=== PATIENT | male | born 2000 | race Asian ===

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

== ENCOUNTER 2021-12-29 19:35 | Emergency (ER) | payer MEDICAID ==
[~2021-12-29] VITALS: Ht 182.9 cm; Wt 68.0 kg
[2021-12-29] MEDS ORDERED: KETOROLAC TROMETH 60MG/2ML VIAL IM ONE (20:45)
[2021-12-29 22:28] VITALS: BP 116/68
== END 2021-12-29 22:30 | disposition home or self-care (01) ==
LOC: ER 19:35
DX: B34.9 Viral infection, unspecified (principal); R51.9 Headache, unspecified; R50.9 Fever, unspecified; F12.10 Cannabis abuse, uncomplicated; Z20.822 Contact with and (suspected) exposure to COVID-19
CPT/HCPCS: 36415; 87426; 96372; 99283; J1885

== ENCOUNTER 2023-12-20 07:36 | Emergency (ER) | payer MEDICAID ==
[~2023-12-20] VITALS: Ht 182.9 cm; Wt 80.6 kg
[2023-12-20 08:15] LABS: Basophils # (auto) 0.1 10 ^3/uL (0-0.2); Eosinophils # (auto) 0.2 10 ^3/uL (0-0.8); Eosinophils % (auto) 2.2 % (0.0-7.0); Hematocrit 44.6 % (41.0-53.0); Hemoglobin 15.4 g/dL (13.5-17.5); Lymphocytes # (auto) 2.7 10 ^3/uL (0.4-5.4); Lymphocytes % (auto) 25.8 % (10.0-50.0); Mean Corpuscular Hemoglobin 29.9 pg (28.0-32.0); Mean Corpuscular Hgb Conc. 34.4 g/dL (32.0-36.0); Mean Corpuscular Volume 86.8 fL (80.0-100.0); Monocytes # (auto) 0.9 10 ^3/uL (0-1.3); Monocytes % (auto) 8.3 % (0.0-12.0); Neutrophils # (auto) 6.6 10 ^3/uL (1.6-8.6); Neutrophils % (auto) 62.7 % (37.0-80.0); Nucleated Red Blood Cells % 0.1 %; Red Blood Cells 5.14 10^6/uL (4.5-5.90); Red Cell Distribution Width 12.7 % (11.8-14.3); White Blood Cell 10.6 10^3/uL (4.4-10.8)
[2023-12-20 08:23] LABS: Urine Bacteria NONE SEEN /hpf (None Seen); Urine Blood Negative /uL (Negative); Urine Clarity Clear (Clear); Urine Color Colorless (Yellow); Urine Protein, UAD Negative (Negative); Urine Specific Gravity 1.009 (1.001-1.035); Urine Urobilinogen Normal (Negative); Urine WBC <1 /hpf (0 - 3)
[2023-12-20 08:34] LABS: Chloride 105 mmol/L (98-107); Potassium 3.7 mmol/L (3.5-5.1); Sodium 138 mmol/L (136-145)
[2023-12-20 08:35] LABS: Anion Gap 4 (5-15); Calcium 9.5 mg/dL (8.5-10.1); Carbon Dioxide 29 mmol/L (20-30)
[2023-12-20 08:40] LABS: BUN/Creatinine Ratio 6.7 (10.0-20.0); Blood Urea Nitrogen 7 mg/dL (9-23); Glucose 93 mg/dL (74-106)
[2023-12-20 09:08] LABS: Albumin 4.4 g/dL (3.2-4.8); Bilirubin, Total 0.8 mg/dL (0.2-1.0); Total Protein 7.1 g/dL (5.7-8.2)
[2023-12-20 09:42] LABS: Bilirubin, Direct 0.2 mg/dL (<0.3)
[2023-12-20 09:55] VITALS: BP 112/70; PULSE 68; RESP 18; TEMP 98.4; O2SAT 96
== END 2023-12-20 09:57 | disposition home or self-care (01) ==
LOC: ER 07:36
DX: R10.84 Generalized abdominal pain (principal); F15.90 Other stimulant use, unspecified, uncomplicated
CPT/HCPCS: 36415; 76705; 80048; 80076; 81001; 83690; 85025

== ENCOUNTER 2024-01-14 10:09 | Emergency (ER) | payer MEDICAID ==
[~2024-01-14] VITALS: Ht 182.9 cm; Wt 79.5 kg
[2024-01-14 11:28] VITALS: BP 124/85; RESP 16; O2SAT 98
[2024-01-14 12:36] VITALS: TEMP 98.1
[2024-01-14] MEDS: IBUPROFEN 600 MG TAB PO ONE (12:36)
[2024-01-14 12:55] LABS: Basophils # (auto) 0.1 10 ^3/uL (0-0.2); Basophils % (auto) 1.2 % (0.0-2.0); Eosinophils # (auto) 0.3 10 ^3/uL (0-0.8); Eosinophils % (auto) 3.1 % (0.0-7.0); Hematocrit 49.8 % (41.0-53.0); Hemoglobin 16.9 g/dL (13.5-17.5); Lymphocytes # (auto) 3.1 10 ^3/uL (0.4-5.4); Lymphocytes % (auto) 38.1 % (10.0-50.0); Mean Corpuscular Hemoglobin 29.3 pg (28.0-32.0); Mean Corpuscular Hgb Conc. 33.9 g/dL (32.0-36.0); Mean Corpuscular Volume 86.2 fL (80.0-100.0); Monocytes # (auto) 0.4 10 ^3/uL (0-1.3); Monocytes % (auto) 5.2 % (0.0-12.0); Neutrophils # (auto) 4.3 10 ^3/uL (1.6-8.6); Neutrophils % (auto) 52.4 % (37.0-80.0); Nucleated Red Blood Cells % 0.2 %; Red Blood Cells 5.77 10^6/uL (4.5-5.90); White Blood Cell 8.2 10^3/uL (4.4-10.8)
[2024-01-14 13:08] LABS: Chloride 104 mmol/L (98-107); Potassium 4.5 mmol/L (3.5-5.1); Sodium 138 mmol/L (136-145)
[2024-01-14 13:09] LABS: Anion Gap 6 (5-15); Carbon Dioxide 28 mmol/L (20-30)
[2024-01-14 13:10] LABS: Calcium 9.7 mg/dL (8.5-10.1)
[2024-01-14 13:14] LABS: BUN/Creatinine Ratio 14.3 (10.0-20.0); Blood Urea Nitrogen 15 mg/dL (9-23); Glucose 90 mg/dL (74-106)
[2024-01-14 13:32] VITALS: PULSE 67
[2024-01-14] MEDS ORDERED: NABU-72 PO (14:06)
== END 2024-01-14 14:11 | disposition home or self-care (01) ==
LOC: ER 10:09
DX: M79.622 Pain in left upper arm (principal); R07.89 Other chest pain; F15.90 Other stimulant use, unspecified, uncomplicated; Z79.899 Other long term (current) drug therapy
CPT/HCPCS: 36415; 71045; 80048; 84484; 85025; 93005; 93971

== ENCOUNTER 2024-04-01 16:45 | Emergency (ER) | payer MEDICAID ==
[~2024-04-01] VITALS: Ht 182.9 cm; Wt 80.7 kg
[~2024-04-01 16:45] MED LIST: NABU-72 PO
[2024-04-01 16:51] VITALS: BP 142/74; PULSE 68; RESP 18; O2SAT 99
== END 2024-04-01 21:29 | disposition left against medical advice (07) ==
LOC: ER 16:45
DX: M79.662 Pain in left lower leg (principal); Z53.21 Procedure and treatment not carried out due to patient leaving prior to being seen by health care provider